=== PATIENT | female | born 1970 | race Caucasian/White ===

== ENCOUNTER 2016-10-24 04:57 | Emergency (ER) | payer OTHER ==
[~2016-10-24] VITALS: Ht 162.6 cm; Wt 93.4 kg
[~2016-10-24 04:57] MED LIST: GLUCOTROL5 M1 PO; METFORMIN1000 MG PO
--- NOTE | 2016-10-24 05:02 | NUR ---
46/F [facility] FOR PREBOOK. STATES PATIENT HAS A HX OF DM,HTN AND ARTHRITIS. PATIENT DENIES ANY PAIN AT THIS TIME. VSS. ER AWARE.
[2016-10-24 05:03] VITALS: BP 129/86
--- NOTE | 2016-10-24 05:10 | NUR ---
Patient being evaluated by at bedside.
[2016-10-24] MEDS ORDERED: NACL 0.9% 1,000 ML IV SCH (05:16)
[2016-10-24] MEDS ORDERED: INSULIN HUMAN REGULAR 100 UNITS/ML 10 ML VIAL IVP ONE ×3 (05:20→06:10)
--- NOTE | 2016-10-24 05:55 | NUR ---
FOR CLARIFICATION; REGULAR INSULIN 4 UNITS IV PUSH START TIME 0550, END TIME 0551. REVEVALUATED AT 0610; NDAR.
[2016-10-24] MEDS ORDERED: NACL 0.9% 1,000 ML IV ONE (06:35)
[2016-10-24 07:08] VITALS: BP 104/66
--- NOTE | 2016-10-24 07:08 | NUR ---
Patient discharged with v/s stable. Written and verbal after care instructions given and explained. Patient verbalized understanding. Ambulatory with steady gait. All questions addressed prior to discharge. Advised to follow up with PMD.
== END 2016-10-24 07:08 | disposition home or self-care (01) ==
LOC: MED 04:57
DX: E11.9 Type 2 diabetes mellitus without complications (principal); I10 Essential (primary) hypertension; F10.129 Alcohol abuse with intoxication, unspecified; F17.210 Nicotine dependence, cigarettes, uncomplicated; Z79.4 Long term (current) use of insulin; Y90.6 Blood alcohol level of 120-199 mg/100 ml
CPT/HCPCS: 36415; 80053; 80305; 81025; 82948; 85025; 96361; 96374; 99284; G0482; J1815; J7030

== ENCOUNTER 2019-08-11 16:37 | Emergency (ER) | payer MEDICAID, OTHER ==
[~2019-08-11] VITALS: Ht 162.6 cm; Wt 83.5 kg
[~2019-08-11 16:37] MED LIST changes: -GLUCOTROL5 M1 PO; +GLUXL5 PO; +METF100028 PO; -METFORMIN1000 MG PO
[2019-08-11 16:53] VITALS: BP 131/64
--- NOTE | 2019-08-11 19:15 | NUR ---
PT CAME INTO ER WITH C/O HIGH BLOOD SUGAR AND ALSO PT OUT OF MEDCATION MORE THAN TWO WEEKS. PT STATES SHE CURRENTLY DOES NOT HAVE A PCP AND NEEDS A MEDICATION REFILL FOR DM MEDICATIONS. PT ALSO C/O COUGH, SORE THROAT X 1 DAY. NO COUGH WAS OBSERVED IN ER. PT IS ALERT AND IS ABLE TO ANSWER QUESTIONS APPROPRIATELY. PT PAIN LEVEL AT THIS TIME IS 0/10. ERMD MADE AWARE OF STATUS, SAFETY MEASURES IN PLACE. BS: 390 HX: DM
[2019-08-11 19:57] VITALS: BP 131/64
--- NOTE | 2019-08-11 19:57 | NUR ---
Patient discharged with v/s stable. Written and verbal after care instructions given and explained. Patient alert, oriented and verbalized understanding of instructions. Ambulatory with steady gait. All questions addressed prior to discharge. ID band removed. Patient advised to follow up with PMD. Rx of GLIPIZIDE, METFORMIN WAS given. Patient educated on indication of medication including possible reaction and side effects. Opportunity to ask questions provided and answered.
== END 2019-08-11 19:57 | disposition home or self-care (01) ==
LOC: MED 16:37
DX: B37.3 Candidiasis of vulva and vagina (principal); J06.9 Acute upper respiratory infection, unspecified; E11.9 Type 2 diabetes mellitus without complications; I10 Essential (primary) hypertension; Z76.0 Encounter for issue of repeat prescription; Z79.84 Long term (current) use of oral hypoglycemic drugs
CPT/HCPCS: 81002; 82948; 99283

== ENCOUNTER 2019-12-07 21:37 | Emergency (ER) | payer MEDICAID, OTHER ==
[~2019-12-07] VITALS: Ht 162.6 cm; Wt 88.9 kg
[2019-12-07 21:44] VITALS: BP 131/80
[2019-12-07] MEDS ORDERED: INSULIN REGULAR, HUMAN 100 UNIT/ML VIAL SUBQ ONE (22:50)
[2019-12-07 23:30] LABS: APPEARANCE,URINE CLEAR (CLEAR); BILIRUBIN,URINE NEGATIVE (NEGATIVE); BLOOD, URINE NEGATIVE (NEGATIVE); COLOR,URINE YELLOW (YELLOW); LEUKOCYTE ESTERASE ,URINE TRACE (NEGATIVE); NITRITE, URINE NEGATIVE (NEGATIVE); PH,URINE 6.5 (5.0-9.0); UGLUCOSE 3+ (NEGATIVE)
[2019-12-07 23:45] LABS: ANION GAP 10.5 (8-16); CARBON DIOXIDE 29.7 mmol/L (21-32); CREATININE 0.8 mg/dL (0.6-1.3); POTASSIUM 4.2 mmol/L (3.5-5.1)
[2019-12-08 00:39] LABS: RBC,URINE 0-5 /HPF (0-5); WBC,URINE 0-5 /HPF (0-5)
[2019-12-08 01:10] VITALS: BP 131/80
== END 2019-12-08 01:10 | disposition home or self-care (01) ==
LOC: MED 21:37
DX: E11.65 Type 2 diabetes mellitus with hyperglycemia (principal); N76.0 Acute vaginitis; I10 Essential (primary) hypertension; Z90.49 Acquired absence of other specified parts of digestive tract; Z98.890 Other specified postprocedural states; Z79.84 Long term (current) use of oral hypoglycemic drugs
CPT/HCPCS: 36415; 80048; 81001; 82948; 96372; 99283; J1815

== ENCOUNTER 2022-05-18 14:43 | Emergency (ER) | payer OTHER ==
[~2022-05-18] VITALS: Ht 162.6 cm; Wt 98.0 kg
[2022-05-18 14:45] VITALS: BP 149/78
--- NOTE | 2022-05-18 15:00 | NUR ---
51YO FEMALE PT C/O DIZZINESS X4DAYS. PT STATES FEELING DIZZY WHEN SEEING "THINGS MOVE TOO FAST". REPORTS VOMIT X1 THIS MORNING DUE TO EPISODE OF DIZZINESS WHICH CAUSED SOB. DENIES DIARRHEA, FEVER , CHILLS OR CHEST PAIN. ALSO C/O NUMBING ADARSH IN FEET, DENIES LOSS OF SENSATION . PRESENTS W/ BRUISING IN L TOE AND L OUTER ANKLE DUE TO RECENT FALL . DENIES LOC OR INJURY TO HEAD. CAP REFILL <3 THROUGHOUT FOOT AND LEGS. AMBULATORY W/ STEADY GAIT. PT AAOX4, NO VISIBLE DISTRESS, RESPIRATIONS EVEN AND UNLABORED. HOB RAISED PER COMFORT, BED AT LOWEST POSITION, BED RAILS UP X2. HX: DIABETES, PERIPHERAL NEUROPATHY NKA
[2022-05-18] MEDS ORDERED: MECLIZINE 25 MG TAB PO ONE (16:05)
[2022-05-18] MEDS ORDERED: KETOROLAC 30 MG/ML VIAL IM ONE (16:05)
[2022-05-18] MEDS ORDERED: ONDANSETRON 4 MG ODT PO ONE (16:05)
--- NOTE | 2022-05-18 17:05 | NUR ---
XRAY AT BEDSIDE
[2022-05-18] MEDS ORDERED: CEPH-588 PO (18:09)
[2022-05-18] MEDS ORDERED: MECL-303 PO (18:09)
[2022-05-18] MEDS ORDERED: IBUP-2213 PO (18:09)
[2022-05-18] MEDS ORDERED: ONDA-188 SL (18:09)
[2022-05-18 18:59] VITALS: BP 130/76
--- NOTE | 2022-05-18 18:59 | NUR ---
Patient discharged with v/s stable. Written and verbal after care instructions FOR TOE FRACTURE, VERTGO AND UTIgiven and explained. Patient alert, oriented and verbalized understanding of instructions. Ambulatory with steady gait. All questions addressed prior to discharge. ID band removed. Patient advised to follow up with PMD. Rx of KEFLEX,ANTIVERT,ZOFRAN given. Opportunity to ask questions provided and answered.
--- NOTE | 2022-05-18 19:00 | NUR ---
The patient's care was reviewed and supervised by Irish Izquierdo RN.
== END 2022-05-18 18:59 | disposition home or self-care (01) ==
LOC: MED 14:43
DX: S92.534A Nondisplaced fracture of distal phalanx of right lesser toe(s), initial encounter for closed fracture (principal); H81.399 Other peripheral vertigo, unspecified ear; N39.0 Urinary tract infection, site not specified; E11.9 Type 2 diabetes mellitus without complications; I10 Essential (primary) hypertension; Z79.84 Long term (current) use of oral hypoglycemic drugs; Z79.899 Other long term (current) drug therapy; W19.XXXA Unspecified fall, initial encounter; Y93.89 Activity, other specified; Y92.89 Other specified places as the place of occurrence of the external cause; Y99.8 Other external cause status
CPT/HCPCS: 29515; 73590; 73630; 81002; 81025; 87086; 96372; 99284; J1885; J8597; Q0092; Q0162

== ENCOUNTER 2024-07-10 18:17 | Emergency (ER) | payer OTHER ==
[~2024-07-10] VITALS: Ht 165.1 cm; Wt 104.3 kg
[~2024-07-10 18:17] MED LIST changes: +CEPH-588 PO; +IBUP-2213 PO; +MECL-303 PO; +ONDA-188 SL
[2024-07-10 18:19] VITALS: BP 168/73; PULSE 104; RESP 20; TEMP 98; O2SAT 99
[2024-07-10] MEDS ORDERED: IBUP-2218 PO (19:45)
== END 2024-07-10 19:51 | disposition home or self-care (01) ==
LOC: MED 18:17
DX: R07.81 Pleurodynia (principal); E11.9 Type 2 diabetes mellitus without complications; I10 Essential (primary) hypertension; M19.90 Unspecified osteoarthritis, unspecified site; Z79.84 Long term (current) use of oral hypoglycemic drugs; Z79.899 Other long term (current) drug therapy
CPT/HCPCS: 71111; 99283